=== PATIENT | female | born 1990 | race Caucasian/White ===

== ENCOUNTER 2018-09-18 13:18 | Emergency (ER) | payer SELFPAY ==
[~2018-09-18] VITALS: Ht 165.1 cm; Wt 110.5 kg
[2018-09-18 13:44] VITALS: Ht 165.1 cm; Wt 110.5 kg
[2018-09-18] MEDS ORDERED: EFFEXOR75 MG PO (13:47)
[2018-09-18] MEDS ORDERED: MINIPRESS2 MG PO (13:47)
[2018-09-18] MEDS ORDERED: CYMBALTA60 MG PO (13:48)
[2018-09-18] MEDS ORDERED: VISTARIL50 MG PO (13:49)
[2018-09-18 14:47] LABS: BASOPHILS 0.3 % (0-2); EOSINOPHILS 3.3 % (0-7); HEMATOCRIT 39.7 % (36.0-48.0); HEMOGLOBIN 13.3 g/dL (12-16); IMMATURE GRANULOCYTES 0.1 % (0-5); MCH 28.5 pg (26.0-34.0); MCHC 33.5 g/dL (31.0-37.0); MCV 85.2 fL (80.0-100.0); MEAN PLATELET VOLUME 10.1 fL (7.4-10.4); NEUTROPHILS 66.3 % (40-80); PLATELET COUNT 181 10x3/uL (130-400); RBC 4.66 10x6/uL (4.00-5.40); RDW 13.8 % (11.5-14.5); WBC 9.7 10x3/uL (4.8-10.8)
[2018-09-18 14:57] LABS: ALBUMIN 2.9 g/dL (3.4-5.0); ALKALINE PHOSPHATASE 69 U/L (46-116); ALT (SGPT) 45 U/L (10-68); AMYLASE - SERUM 27 U/L (25-115); BILIRUBIN - TOTAL 0.49 mg/dL (0.2-1.3); CALC OSMOLALITY 281 mosm/kg (275-300); CALCIUM 8.4 mg/dL (8.5-10.1); CARBON DIOXIDE 30.4 mmol/L (21.0-32.0); CHLORIDE - SERUM 103 mmol/L (98-107); CREATININE - SERUM 0.6 mg/dL (0.6-1.3); GLUCOSE 267 mg/dL (74-106); LIPASE 108 U/L (73-393); PROTEIN - SERUM 6.5 g/dL (6.4-8.2); SODIUM 137 mmol/L (136-145); TROPONIN-I < 0.017 ng/mL (0.000-0.060); UREA NITROGEN 10 mg/dL (7-18); eGFR NON AFRICAN AMERICAN > 90 mL/min (90-120)
[2018-09-18 15:28] LABS: APPEARANCE HAZY (CLEAR); BILIRUBIN NEGATIVE (NEGATIVE); COLOR RED (YELLOW); GLUCOSE 250 mg/dL (NEGATIVE); KETONE NEGATIVE (NEGATIVE); NITRITE NEGATIVE (NEGATIVE); PROTEIN 1+ mg/dL (NEGATIVE); SPECIFIC GRAVITY 1.025 (1.005-1.020); UROBILINOGEN NORMAL (NORMAL)
[2018-09-18 15:29] LABS: WHITE CELLS - URINE 0-5 /hpf (0-5)
[2018-09-18 15:30] LABS: BACTERIA MODERATE /hpf (NONE SEEN); EPITHELIAL CELLS 0-5 /hpf (0-5); RED CELLS - URINE >50 /hpf (0-5); YEAST <1+ /hpf (NONE SEEN)
[2018-09-18 16:22] LABS: HCG SERUM NEGATIVE (NEGATIVE)
--- NOTE | 2018-09-18 16:43 | NUR ---
DR. POLK NOTIFIED AND REVIEWED PTS BEHAVIOR AND ASSESSMENT RESULTS. PT IS A LOW RISK PER DR. POLK. DR. POLK STATED TO GIVE RESOURCES TO PT AT TIME OF DISCHARGE. NO FURTHER ORDERS AT THIS TIME. RESOURCES REVIEWED WITH PT AND SHE VERBALIZED UNDERSTANDING.
[2018-09-18] MEDS ORDERED: ONDANSETRON8 MG/TAB PO (17:55)
[2018-09-18 18:34] VITALS: BP 138/89
== END 2018-09-18 18:34 | disposition home or self-care (01) ==
LOC: D.ER 13:18
PROVIDERS: Family Medicine
DX: K52.9 Noninfective gastroenteritis and colitis, unspecified (principal)

== ENCOUNTER 2018-10-02 16:52 | Emergency (ER) | payer SELFPAY ==
[~2018-10-02] VITALS: Ht 165.1 cm; Wt 110.5 kg
[~2018-10-02 16:52] MED LIST: CYMBALTA60 MG PO; EFFEXOR75 MG PO; MINIPRESS2 MG PO; ONDANSETRON8 MG/TAB PO; VISTARIL50 MG PO
[2018-10-02 17:08] VITALS: Ht 165.1 cm; Wt 110.5 kg
[2018-10-02 17:37] LABS: BASOPHILS 0.3 % (0-2); EOSINOPHILS 2.4 % (0-7); HEMATOCRIT 33.5 % (36.0-48.0); HEMOGLOBIN 11.3 g/dL (12-16); IMMATURE GRANULOCYTES 0.2 % (0-5); LYMPHOCYTES 24.8 % (15-50); MCH 28.6 pg (26.0-34.0); MCHC 33.7 g/dL (31.0-37.0); MCV 84.8 fL (80.0-100.0); MONOCYTES 5.3 % (2-11); RBC 3.95 10x6/uL (4.00-5.40); RDW 13.4 % (11.5-14.5); WBC 11.3 10x3/uL (4.8-10.8)
[2018-10-02 17:51] LABS: PLATELET COUNT 227 10x3/uL (130-400)
[2018-10-02 18:03] LABS: ALBUMIN 3.3 g/dL (3.4-5.0); ALKALINE PHOSPHATASE 72 U/L (46-116); ALT (SGPT) 40 U/L (10-68); BILIRUBIN - TOTAL 0.51 mg/dL (0.2-1.3); CALC OSMOLALITY 285 mosm/kg (275-300); CALCIUM 8.4 mg/dL (8.5-10.1); CARBON DIOXIDE 26.4 mmol/L (21.0-32.0); CHLORIDE - SERUM 102 mmol/L (98-107); CREATININE - SERUM 0.8 mg/dL (0.6-1.3); POTASSIUM - SERUM 3.6 mmol/L (3.5-5.1); SODIUM 137 mmol/L (136-145); UREA NITROGEN 11 mg/dL (7-18); eGFR NON AFRICAN AMERICAN 89 mL/min (90-120)
[2018-10-02 18:04] LABS: GLUCOSE 324 mg/dL (74-106)
[2018-10-02 18:09] LABS: HCG SERUM NEGATIVE (NEGATIVE)
[2018-10-02] MEDS ORDERED: GLUCOPHAGE500 MG PO (19:14)
[2018-10-02 19:48] LABS: APPEARANCE TURBID (CLEAR); BILIRUBIN NEGATIVE (NEGATIVE); COLOR RED (YELLOW); GLUCOSE 1000 mg/dL (NEGATIVE); KETONE NEGATIVE (NEGATIVE); NITRITE NEGATIVE (NEGATIVE); PROTEIN 2+ mg/dL (NEGATIVE); UROBILINOGEN NORMAL (NORMAL)
[2018-10-02 19:49] LABS: BACTERIA FEW /hpf (NONE SEEN); RED CELLS - URINE >50 /hpf (0-5); WHITE CELLS - URINE 0-5 /hpf (0-5)
[2018-10-02 20:00] LABS: UDS - AMPHET NEGATIVE QUAL (NEGATIVE); UDS - BARB NEGATIVE QUAL (NEGATIVE); UDS - BENZO NEGATIVE QUAL (NEGATIVE); UDS - COCAINE NEGATIVE QUAL (NEGATIVE); UDS - OPIATE NEGATIVE QUAL (NEGATIVE); UDS - PCP NEGATIVE QUAL (NEGATIVE); UDS - THC NEGATIVE QUAL (NEGATIVE)
[2018-10-02 20:10] VITALS: BP 136/85
== END 2018-10-02 20:10 | disposition home or self-care (01) ==
LOC: D.ER 16:52
PROVIDERS: Family Medicine
DX: E11.9 Type 2 diabetes mellitus without complications (principal); N92.6 Irregular menstruation, unspecified

== ENCOUNTER 2019-02-06 14:53 | Emergency (ER) | payer MEDICAID ==
[~2019-02-06] VITALS: Ht 165.1 cm; Wt 113.6 kg
[~2019-02-06 14:53] MED LIST changes: +GLUCOPHAGE500 MG PO
[2019-02-06 15:03] VITALS: Ht 165.1 cm; Wt 113.6 kg
[2019-02-06 15:39] LABS: BASOPHILS 0.2 % (0-2); EOSINOPHILS 2.7 % (0-7); HEMATOCRIT 43.2 % (36.0-48.0); HEMOGLOBIN 13.9 g/dL (12-16); IMMATURE GRANULOCYTES 0.2 % (0-5); LYMPHOCYTES 31.6 % (15-50); MCH 26.5 pg (26.0-34.0); MCHC 32.2 g/dL (31.0-37.0); MCV 82.3 fL (80.0-100.0); MEAN PLATELET VOLUME 10.5 fL (7.4-10.4); MONOCYTES 4.2 % (2-11); NEUTROPHILS 61.1 % (40-80); PLATELET COUNT 202 10x3/uL (130-400); RBC 5.25 10x6/uL (4.00-5.40); RDW 14.9 % (11.5-14.5); WBC 10.6 10x3/uL (4.8-10.8)
[2019-02-06 15:56] LABS: CALC OSMOLALITY 289 mosm/kg (275-300); CALCIUM 8.8 mg/dL (8.5-10.1); CARBON DIOXIDE 26.5 mmol/L (21.0-32.0); CHLORIDE - SERUM 103 mmol/L (98-107); CREATININE - SERUM 0.6 mg/dL (0.6-1.3); GLUCOSE 291 mg/dL (74-106); POTASSIUM - SERUM 3.9 mmol/L (3.5-5.1); SODIUM 139 mmol/L (136-145); UREA NITROGEN 15 mg/dL (7-18); eGFR NON AFRICAN AMERICAN > 90 mL/min (90-120)
[2019-02-06 16:02] LABS: ALBUMIN 3.5 g/dL (3.4-5.0); ALKALINE PHOSPHATASE 83 U/L (46-116); ALT (SGPT) 51 U/L (10-68); PROTEIN - SERUM 7.7 g/dL (6.4-8.2)
[2019-02-06 18:20] LABS: APPEARANCE CLEAR (CLEAR); BILIRUBIN NEGATIVE (NEGATIVE); COLOR YELLOW (YELLOW); NITRITE NEGATIVE (NEGATIVE); PROTEIN TRACE mg/dL (NEGATIVE); SPECIFIC GRAVITY 1.025 (1.005-1.020); UROBILINOGEN NORMAL (NORMAL)
[2019-02-06 18:21] LABS: GLUCOSE 1000 mg/dL (NEGATIVE); KETONE MODERATE mg/dL (NEGATIVE)
[2019-02-06 18:22] LABS: BACTERIA FEW /hpf (NEGATIVE); EPITHELIAL CELLS 0-5 /hpf (0-5); RED CELLS - URINE OCC /hpf (0-5); WHITE CELLS - URINE 0-5 /hpf (NEGATIVE)
[2019-02-06 18:23] LABS: YEAST <1+ /hpf (NONE SEEN)
[2019-02-06] MEDS ORDERED: DIFLUCAN150 MG PO (21:00)
[2019-02-06] MEDS ORDERED: GLUCOPHAGE500 MG PO (21:00)
[2019-02-06 21:23] VITALS: BP 101/52
== END 2019-02-06 21:23 | disposition home or self-care (01) ==
LOC: D.ER 14:53
PROVIDERS: Emergency Medicine
DX: S09.90XA Unspecified injury of head, initial encounter (principal); E11.65 Type 2 diabetes mellitus with hyperglycemia; Z79.84 Long term (current) use of oral hypoglycemic drugs; B37.9 Candidiasis, unspecified; F32.9 Major depressive disorder, single episode, unspecified; F43.10 Post-traumatic stress disorder, unspecified; F42.9 Obsessive-compulsive disorder, unspecified; F90.9 Attention-deficit hyperactivity disorder, unspecified type; P27.1 Bronchopulmonary dysplasia originating in the perinatal period

== ENCOUNTER 2019-04-08 17:59 | Emergency (ER) | payer OTHER ==
[~2019-04-08 17:59] MED LIST changes: +DIFLUCAN150 MG PO
[2019-04-08 18:23] VITALS: Ht 165.1 cm
[2019-04-08] MEDS ORDERED: GLUCOPHAGE1000 MG PO (18:24)
[2019-04-08] MEDS ORDERED: CYMBALTA60 MG PO (18:25)
[2019-04-08] MEDS ORDERED: VISTARIL50 MG PO (18:25)
[2019-04-08] MEDS ORDERED: MINIPRESS2 MG PO (18:26)
[2019-04-08] MEDS ORDERED: ABILIFY2 MG PO (18:26)
[2019-04-08 19:11] LABS: APPEARANCE CLEAR (CLEAR); BILIRUBIN NEGATIVE (NEGATIVE); COLOR YELLOW (YELLOW); GLUCOSE NEGATIVE (NEGATIVE); KETONE NEGATIVE (NEGATIVE); NITRITE NEGATIVE (NEGATIVE); PROTEIN NEGATIVE (NEGATIVE); UROBILINOGEN NORMAL (NORMAL)
[2019-04-08 19:27] LABS: UDS - AMPHET NEGATIVE QUAL (NEGATIVE); UDS - BARB NEGATIVE QUAL (NEGATIVE); UDS - BENZO NEGATIVE QUAL (NEGATIVE); UDS - COCAINE NEGATIVE QUAL (NEGATIVE); UDS - OPIATE NEGATIVE QUAL (NEGATIVE); UDS - PCP NEGATIVE QUAL (NEGATIVE); UDS - THC NEGATIVE QUAL (NEGATIVE)
[2019-04-08 19:38] LABS: BASOPHILS 0.3 % (0-2); EOSINOPHILS 4.2 % (0-7); HEMATOCRIT 41.5 % (36.0-48.0); HEMOGLOBIN 13.5 g/dL (12-16); IMMATURE GRANULOCYTES 0.2 % (0-5); LYMPHOCYTES 29.7 % (15-50); MCH 27.6 pg (26.0-34.0); MCHC 32.5 g/dL (31.0-37.0); MCV 84.9 fL (80.0-100.0); MEAN PLATELET VOLUME 9.9 fL (7.4-10.4); MONOCYTES 5.6 % (2-11); PLATELET COUNT 245 10x3/uL (130-400); RBC 4.89 10x6/uL (4.00-5.40); RDW 13.7 % (11.5-14.5); WBC 11.2 10x3/uL (4.8-10.8)
[2019-04-08 19:45] LABS: CALC OSMOLALITY 284 mosm/kg (275-300); CALCIUM 9.2 mg/dL (8.5-10.1); CHLORIDE - SERUM 102 mmol/L (98-107); CREATININE - SERUM 0.8 mg/dL (0.6-1.3); GLUCOSE 271 mg/dL (74-106); POTASSIUM - SERUM 3.9 mmol/L (3.5-5.1); SODIUM 138 mmol/L (136-145); UREA NITROGEN 10 mg/dL (7-18); eGFR NON AFRICAN AMERICAN 89 mL/min (90-120)
[2019-04-08 19:51] LABS: ALBUMIN 3.3 g/dL (3.4-5.0); ALKALINE PHOSPHATASE 75 U/L (46-116); ALT (SGPT) 37 U/L (10-68); BILIRUBIN - TOTAL 0.37 mg/dL (0.2-1.3); PROTEIN - SERUM 7.6 g/dL (6.4-8.2)
[2019-04-08 19:57] LABS: HCG SERUM NEGATIVE (NEGATIVE)
--- NOTE | 2019-04-08 20:00 | NUR ---
DR LI NOTIFIED AND SITTER ORDERED. SITTER AT BEDSIDE. NOTIFIED CHARGE NURSE AND ATTENDING IN REGARDS TO ASSESSMENT FINDINGS. RESOURCES GIVEN TO PATIENT AND SAFETY PLAN INITIATED.
[2019-04-08 23:03] VITALS: BP 122/80
== END 2019-04-08 23:18 ==
LOC: D.ER 17:59
PROVIDERS: Emergency Medicine
DX: R45.851 Suicidal ideations (principal); E11.9 Type 2 diabetes mellitus without complications; Z79.84 Long term (current) use of oral hypoglycemic drugs

== ENCOUNTER 2019-05-20 12:02 | Emergency (ER) | payer OTHER ==
[~2019-05-20] VITALS: Ht 165.1 cm; Wt 108.6 kg
[2019-05-20 12:42] VITALS: Ht 165.1 cm; Wt 108.6 kg
[2019-05-20 14:02] VITALS: BP 140/80
== END 2019-05-20 14:03 | disposition home or self-care (01) ==
LOC: D.ER 12:02
DX: J02.0 Streptococcal pharyngitis (principal); E11.9 Type 2 diabetes mellitus without complications; Z79.84 Long term (current) use of oral hypoglycemic drugs

== ENCOUNTER 2020-07-28 10:33 | Emergency (ER) | payer OTHER ==
[~2020-07-28] VITALS: Ht 165.1 cm; Wt 103.6 kg
[~2020-07-28 10:33] MED LIST changes: +ABILIFY2 MG PO; +AUGMENTIN 875-11 TAB PO; +DURAFLU 325-201 EACH PO; +GLUCOPHAGE1000 MG PO
[2020-07-28 10:44] VITALS: BP 134/90; Ht 165.1 cm; Wt 103.6 kg
[2020-07-28 11:23] LABS: BILIRUBIN NEGATIVE (NEGATIVE); KETONE SMALL mg/dL (NEGATIVE); NITRITE NEGATIVE (NEGATIVE); UROBILINOGEN NORMAL mg/dL (< 2)
[2020-07-28 11:24] LABS: BACTERIA FEW HPF (NONE SEEN); SQUAMOUS EPITHELIAL 0-5 HPF (0-4)
[2020-07-28] MEDS ORDERED: MACROBID100 MG PO (11:52)
== END 2020-07-28 12:00 | disposition home or self-care (01) ==
LOC: D.ER 10:33
PROVIDERS: Emergency Medicine
DX: R30.9 Painful micturition, unspecified (principal); N39.0 Urinary tract infection, site not specified; E11.9 Type 2 diabetes mellitus without complications